=== PATIENT | female | born 1980 | race Caucasian/White ===

== ENCOUNTER 2020-05-13 14:07 | Outpatient (CLI) | payer OTHER, SELFPAY ==
--- NOTE | ~2020-05-13 | MR_ITS ---
EXAMINATION: MR wrist LT wo con DATE: 05/13/2020 14:59 INDICATION: Left wrist lifting injury one month prior with general sided left wrist pain with medial predominance. TECHNIQUE: Magnetic resonance imaging (MRI) of the left wrist was performed without intravenous contr ast. Sequences performed include axial PD-weighted FSE and PD-weighted FS FSE, coronal PD-weighted FS FSE and T1-weighted SE, and sagittal PD-weighted FS FSE and PD-weighted FSE. COMPARISON: None FINDINGS: Intrinsic ligaments: The scapholunate and lunotriquetral ligaments are normal. Triangular fibrocartilage complex (TFCC): High-grade partial tear at the ulnar side of the volar radioulnar ligament which most prominently thi ckened and with increased signal without discrete fluid signal intensity discontinuity. Less severe p artial tears of the dorsal radioulnar ligament and at the foveal attachment of the triangular fibroca rtilage complex. The central fibrocartilaginous disc, the radial and foveal attachments as well as th e ulnar triquetral ligament appear to remain grossly intact. The ulnar collateral ligament, meniscal homologue and extensor carpi ulnaris tendon subsheath are normal. Extensor wrist: Extensor tendons of the wrist are normal. No tenosynovitis. Flexor wrist: The flexor tendons of the wrist are normal. No abnormality in the carpal tunnel with normal median n erve. Guyon's canal: Guyon's canal including the ulnar nerve and artery are normal. Bones/other: Normal marrow signal. No fracture, erosions, avascular necrosis or abnormal marrow replacing process. Joint spaces are normal with no focal cartilage defects appreciated. IMPRESSION: 1. Partial tear of the triangular fibrocartilage complex crowding higher grade partial tear of the vo lar radioulnar ligament and low-grade partial tears of the dorsal radioulnar ligament and foveal hien chment. Reviewed, dictated and finalized at location A. NT RECRUITER IMPRESSION: 1. Partial tear of the triangular fibrocartilage complex crowding higher grade partial tear of the volar radioulnar ligament and low-grade partial tears of th e dorsal radioulnar ligament and foveal attachment.
== END 2020-05-13 14:08 | disposition home or self-care (01) ==
LOC: ANHIMG 14:16
PROVIDERS: PCP Internal Medicine
DX: S69.92XA Unspecified injury of left wrist, hand and finger(s), initial encounter (principal); S63.592A Other specified sprain of left wrist, initial encounter
CPT/HCPCS: 73221

== ENCOUNTER 2020-07-22 09:43 | Outpatient (CLI) | payer OTHER, SELFPAY ==
--- NOTE | ~2020-07-22 | US_ITS ---
EXAMINATION: US pelvic complete w TV DATE: 07/22/2020 10:17 INDICATION: Left adnexal fullness Comparison:No prior studies for comparison. TECHNIQUE: Multiple transabdominal and endovaginal sonographic images of the pelvis performed. FINDINGS: The uterus measures 7.9 x 5.3 x 4.9 cm. The endometrial complex measures 4 mm. The right ovary measures 2.4 x 1.6 x 1.7 cm and the left ovary measures 1.9 x 1.5 x 0.7 cm. There ar e small follicles in each ovary. Normal doppler signal in both ovaries. There are mildly dilated left adnexal veins with increased vascularity. There is no free fluid in the pelvis. There are no abnormal masses seen on either side. IMPRESSION: 1. Mildly dilated left adnexal veins with increased vascularity, nonspecific but can be associated wi th pelvic congestion syndrome. Reviewed, dictated and finalized at location A. IMPRESSION: 1. Mildly dilated left adnexal veins with increased vascularity, nonspecific bu t can be associated with pelvic congestion syndrome.
== END 2020-07-22 09:44 | disposition home or self-care (01) ==
LOC: ANHIMG 09:49
PROVIDERS: PCP Internal Medicine; Visit Provider Obstetrics & Gynecology
DX: N94.9 Unspecified condition associated with female genital organs and menstrual cycle (principal)
CPT/HCPCS: 76830; 76856

== ENCOUNTER 2022-02-17 08:46 | Outpatient (CLI) | payer OTHER, SELFPAY ==
[2022-02-17 18:53] LABS: Basophils Percent Auto 0.4 % (0.2-1.2); Eosinophils Absolute Auto 0.1 K/mm3 (0-0.3); Eosinophils Percent Auto 0.9 % (0-4.4); Hematocrit 35.7 % (37.0-47.0); Hemoglobin 11.2 g/dL (12.0-15.0); Immature Granulocyte Absolute 0.03 K/mm3 (0.00-0.031); Immature Granulocyte Percent A 0.6 % (0-0.5); Lymphocytes Absolute Auto 1.41 K/mm3 (0.9-3.2); Lymphocytes Percent Auto 26.5 % (18.3-44.2); Mean Corpuscular HGB Conc 31.4 g/dl (32-36); Mean Corpuscular Hemoglobin 27.9 pg (26-34); Mean Platelet Volume 9.7 fl (7.4-10.4); Monocytes Absolute Auto 0.4 K/mm3 (0.1-0.6); Monocytes Percent Auto 7.5 % (2.6-8.5); Neutrophils Absolute Auto 3.4 K/mm3 (1.3-6.7); Neutrophils Percent Auto 64.1 % (45.5-73.1); Platelet Count Result 246 k/mm3 (150-375); Red Blood Count 4.01 M/mm3 (4.2-5.4); Red Cell Distribution Width 13.7 % (11.5-14.5); White Blood Count 5.3 K/mm3 (4.5-10.0)
[2022-02-17 19:04] LABS: Alanine Aminotransferase 24 U/L (6-35); Alkaline Phosphatase 57 U/L (38-126); Anion Gap 7 mmol/L (8-16); Aspartate Amino Transferase 45 U/L (14-36); Bilirubin,Total 0.3 mg/dL (0.2-1.3); Blood Urea Nitrogen 14 mg/dL (7-17); Calcium 8.5 mg/dL (8.4-10.2); Carbon Dioxide 25 mmol/L (22-30); Chloride 106 mmol/L (98-107); Cholesterol 156 mg/dL (0-200); Estimated Glomerular Filt Rate > 60; Glucose 88 mg/dL (65-110); HDL Direct 62 mg/dL; Potassium 4.3 mmol/L (3.4-5.0); Sodium 138 mmol/L (137-145); Triglycerides 35 mg/dL (<150)
[2022-02-17 19:15] LABS: LDL Cholesterol Direct 69 mg/dL
[2022-02-17 20:02] LABS: Vitamin D 25 Hydroxy 31.1 ng/mL
[2022-02-20 15:53] LABS: Testosterone Free 1.5 pg/mL (0.1-6.4); Testosterone Total 34 ng/dL (2-45)
[2022-02-22 18:11] LABS: FSH 3.7 mIU/mL (***)
[2022-02-25 14:52] LABS: Estrogen 858.2 pg/mL
== END 2022-02-17 08:47 | disposition home or self-care (01) ==
PROVIDERS: PCP Nurse Practitioner; Visit Provider Obstetrics & Gynecology
DX: Z13.220 Encounter for screening for lipoid disorders (principal); Z13.228 Encounter for screening for other metabolic disorders; R53.83 Other fatigue; R68.82 Decreased libido
CPT/HCPCS: 36415; 80053; 80061; 82306; 82672; 83001; 84402; 84403; 85025

== ENCOUNTER 2022-11-18 09:51 | Outpatient (CLI) | payer OTHER, SELFPAY ==
--- NOTE | ~2022-11-18 | MM_ITS ---
EXAMINATION: MM screening sai BI w ruthy HISTORY: Screening TECHNIQUE: Craniocaudal and mediolateral oblique 3-D tomosynthesis images were obtained and synthetic 2-D images were generated. CAD analysis was submitted and interpreted. COMPARISON: No prior mammogram is available for comparison at this institution. BREAST PARENCHYMAL COMPOSITION: Breast composed of scattered areas of fibroglandular density FINDINGS: There are bilateral breast asymmetries in the periareolar location of the right breast, upp er outer quadrant of the left breast posteriorly and lower central left breast anteriorly. There are no suspicious calcifications or architectural distortion. IMPRESSION: 1. Bilateral breast asymmetries. 2. Additional mammographic views and possible breast ultrasound are recommended. BI-RADS Category 0: Incomplete: Needs additional imaging evaluation. Reviewed, dictated and finalized at location A. IMPRESSION: 1. Bilateral breast asymmetries. 2. Additional mammographic views and possible breast ultrasound are recommended . BI-RADS Category 0: Incomplete: Needs additional imaging evaluation.
== END 2022-11-18 09:52 | disposition home or self-care (01) ==
LOC: ANHIMG 09:54
PROVIDERS: PCP Nurse Practitioner; Visit Provider Obstetrics & Gynecology
DX: Z12.31 Encounter for screening mammogram for malignant neoplasm of breast (principal); R92.8 Other abnormal and inconclusive findings on diagnostic imaging of breast
CPT/HCPCS: 77063; 77067

== ENCOUNTER 2022-12-16 12:40 | Outpatient (CLI) | payer OTHER, SELFPAY ==
--- NOTE | ~2022-12-16 | MMUS_ITS ---
EXAMINATION: MM diagnostic sai BI w ruthy, US breast BI complete HISTORY: Bilateral mammographic asymmetries reported on 11/18/2022 screening mammogram TECHNIQUE: Additional 3-D tomosynthesis images of both breasts were performed and synthetic 2-D image s were generated. CAD analysis was submitted and interpreted. High resolution complete bilateral j[address] ultrasound examination clinical 4 quadrants and subareolar areas was performed. COMPARISON: 11/18/2022 bilateral screening mammogram BREAST PARENCHYMAL COMPOSITION: There are scattered areas of fibroglandular density. FINDINGS: MAMMOGRAPHIC FINDINGS: Circumscribed benign-appearing probable lymph node is identified in the mid to upper outer right j[address] and posterior upper outer left breast. There is fibroglandular asymmetry. Otherwise no suspicious mass, architectural distortion, malignant calcification, skin thickening or r etraction of either breast is detected. ULTRASOUND: Benign-appearing approximately 9 x 2.7 x 7 mm lymph node is confirmed in the right breast at 10:00 7 cm from the nipple. Benign-appearing approximately 6 x 3 x 6.4 mm lymph node is confirmed in the left breast at 1:00 6 cm from the nipple. No suspicious mass or shadowing of either breast is detected. IMPRESSION: 1. Benign findings; no mammographic evidence of malignancy 2. Routine annual mammographic screening is recommended BI-RADS Category 2: Benign finding(s). Reviewed, dictated and finalized at location A. IMPRESSION: 1. Benign findings; no mammographic evidence of malignancy 2. Routine annual mammographic screening is recommended BI-RADS Category 2: Benign finding(s).
== END 2022-12-16 12:41 | disposition home or self-care (01) ==
LOC: ANHIMG 12:42
PROVIDERS: PCP Internal Medicine; Visit Provider Obstetrics & Gynecology
DX: R92.8 Other abnormal and inconclusive findings on diagnostic imaging of breast (principal)
CPT/HCPCS: 76641; 77062; 77066; G0279

== ENCOUNTER 2023-03-25 07:42 | Outpatient (CLI) | payer OTHER, SELFPAY ==
[2023-03-25 19:46] LABS: Basophils Percent Auto 0.7 % (0.2-1.2); Eosinophils Absolute Auto 0.1 K/mm3 (0-0.3); Eosinophils Percent Auto 1.1 % (0-4.4); Hematocrit 40.6 % (37.0-47.0); Hemoglobin 12.6 g/dL (12.0-15.0); Immature Granulocyte Absolute 0.01 K/mm3 (0.00-0.031); Immature Granulocyte Percent A 0.2 % (0-0.5); Lymphocytes Absolute Auto 1.54 K/mm3 (0.9-3.2); Lymphocytes Percent Auto 33.6 % (18.3-44.2); Mean Corpuscular Hemoglobin 26.3 pg (26-34); Mean Corpuscular Volume 84.8 fl (80-100); Mean Platelet Volume 10.8 fl (7.4-10.4); Monocytes Absolute Auto 0.4 K/mm3 (0.1-0.6); Monocytes Percent Auto 9.4 % (2.6-8.5); Neutrophils Absolute Auto 2.5 K/mm3 (1.3-6.7); Platelet Count Result 215 k/mm3 (150-375); Red Blood Count 4.79 M/mm3 (4.2-5.4); Red Cell Distribution Width 14.3 % (11.5-14.5); White Blood Count 4.6 K/mm3 (4.5-10.0)
[2023-03-25 20:04] LABS: Iron 42 ug/dL (37-170); Percent Iron Saturation 10 % (20-50); Vitamin D 25 Hydroxy 36.2 ng/mL
[2023-03-25 20:11] LABS: LDL Cholesterol Direct 83 mg/dL
[2023-03-25 20:16] LABS: Alanine Aminotransferase 16 U/L (6-35); Albumin Level 4.1 g/dL (3.5-5.1); Alkaline Phosphatase 64 U/L (38-126); Anion Gap 8 mmol/L (8-16); Aspartate Amino Transferase 44 U/L (14-36); Bilirubin,Total 0.3 mg/dL (0.2-1.3); Blood Urea Nitrogen 15 mg/dL (7-17); Calcium 8.9 mg/dL (8.4-10.2); Carbon Dioxide 23 mmol/L (22-30); Chloride 105 mmol/L (98-107); Cholesterol 190 mg/dL (0-200); Estimated Glomerular Filt Rate > 60; Glucose 94 mg/dL (65-110); HDL Direct 79 mg/dL; Potassium 4.1 mmol/L (3.4-5.0); Sodium 136 mmol/L (137-145); Triglycerides 60 mg/dL (<150)
[2023-03-25 21:05] LABS: Folic Acid 12.9 ng/mL (2.76->20)
== END 2023-03-25 07:43 | disposition home or self-care (01) ==
LOC: ANHBWCLAB 07:43
PROVIDERS: PCP Internal Medicine; Visit Provider Clinical Nurse Specialist
DX: D64.9 Anemia, unspecified (principal); E55.9 Vitamin D deficiency, unspecified; R00.2 Palpitations; Z13.220 Encounter for screening for lipoid disorders; Z13.228 Encounter for screening for other metabolic disorders
CPT/HCPCS: 36415; 80053; 80061; 82306; 82607; 82728; 82746; 83540; 83550; 84443; 85025

== ENCOUNTER 2023-06-30 10:35 | Outpatient (CLI) | payer OTHER, SELFPAY ==
--- NOTE | ~2023-06-30 | XR_ITS ---
EXAM: XR lumbar spine 2-3V DATE: 06/30/2023 10:46 HISTORY: lbp no injury right side si joint pain . COMPARISON: None available. FINDINGS: 5 nonrib-bearing lumbar-type vertebral bodies. Pedicles intact. Normal vertebral body alig nment. Vertebral body heights preserved. Mild disc space narrowing and marginal osteophytosis at L2-3 through L4-5. Mild multilevel lumbar facet sclerosis. No fracture or dislocation. IMPRESSION: Mild multilevel degenerative disc disease and facet arthropathy. Reviewed, dictated and finalized at location K.
--- NOTE | ~2023-06-30 | XR_ITS ---
EXAMINATION: XR sacroiliac joints min 3V DATE: 06/30/2023 10:54 INDICATION: Low back pain. Pain of right sacroiliac joint. TECHNIQUE: 3 views of the sacroiliac joints were obtained. COMPARISON: None. FINDINGS: Bone alignment is normal. No fracture. There is mild osteoarthritis of the sacroiliac joint s. IMPRESSION: 1. Mild osteoarthritis of the sacrococcygeal joints. No evidence of inflammatory arthropathy. Reviewed, dictated and finalized at location A. IMPRESSION: 1. Mild osteoarthritis of the sacrococcygeal joints. No evidence of inflammator y arthropathy.
== END 2023-06-30 10:36 ==
PROVIDERS: PCP Internal Medicine; Visit Provider Clinical Nurse Specialist
DX: M53.3 Sacrococcygeal disorders, not elsewhere classified (principal); M51.36 Other intervertebral disc degeneration, lumbar region; M47.816 Spondylosis without myelopathy or radiculopathy, lumbar region
CPT/HCPCS: 72100; 72202

== ENCOUNTER 2023-08-17 09:15 | Outpatient (RCR) | payer OTHER, SELFPAY ==
--- NOTE | 2023-07-30 11:03 | OPREHPOC ---
Outpatient Therapy Plan of Care This is a Multidisciplinary Plan of Care that may contain components documented by all disciplines (PT, OT, and ST.) PT Problem 1 PT Problem #1 Knowledge Deficit PT Goal 1 Goal *indep with HEP Target Visit 8 PT Problem 2 PT Problem #2 Pain PT Goal 1 Goal 1* pt report pain rating of 3/10 at worst 2* no radicular pain into R thigh 3* self assessment Oswestry rating of 6% limitation Target Visit 8 PT Problem 3 PT Problem #3 Impaired Flexibility PT Goal 1 Goal improve flexibility of hips, to improve R/L balance and pelvic positioning: hamstring length with supine SLR 1* R 75' 2* L 75' 3* prone knee flexion L without pain increase Target Visit 8 PT Problem 4 PT Problem #4 Impaired Strength PT Goal 1 Goal increase trunk strength, to improve stability of pelvic-sacral area: 1* pt perform 20 reps of strengthening exercises 2* maintain good position with exercises Target Visit 8
--- NOTE | 2023-07-30 11:03 | PTOPEVAL1 ---
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, careful and have help lifting heavier pts; Reported Pain Level Pain Score Self Report Additional Pain Score Comments pain range in the past week 0-5/10; no longer have pain in low back, but now in front of R hip and lateral hip; radicular to proximal, anterior knee; charley horse in front of hip--push down hard there and it helps; once hip is flared up--hurts rest of day; increase pain: sitting at work computer, varies within 1 hour; standing about 1 hour; decrease pain: straighten R hip, massage therapist sleeping is OK; have not used heat/ice lately; use biofreeze and pain lidocaine patches in the past is not taking any meds for pain; Assessment PT Clinical Summary Pippa has the diagnosis of chronic back pain and sacral- coccyx pain. She reports onset of pain after childbirth and recent flare up after doing more activity at the fitness center. Self assessment Oswestry rating of 10% limitation in activity. Most pain increase with sitting or standing over 1 hour. She has not had PT for her pain in the past, but has been to chiropractor and massage therapist. 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 With the evaluation: she has good strength of LEs decreased flexibility of R and L hamstrings; pain is increased with standing trunk extension, supine R hip flexion and L h
--- NOTE | 2023-09-09 10:47 | PTOPDC ---
Assessment and note entered by Lucía Casper, PT Discharge Report Assessment Status Discharge - Pt Not Present Diagnosis back pain, sacral- coccygeal pain Onset June 2023 Subjective Information pt was not seen this date Assessment PT Clinical Summary Pippa has received 4 PT sessions, from July 29 to August 16. She then stopped attending. Discharge PT services. The goals were not addressed. Plan of Care PT Services Indicated No
== END 2023-09-09 11:31 | disposition home or self-care (01) ==
LOC: ANHPT 09:15
PROVIDERS: PCP Internal Medicine; Visit Provider Clinical Nurse Specialist
DX: M53.3 Sacrococcygeal disorders, not elsewhere classified (principal); M54.50 Low back pain, unspecified
CPT/HCPCS: 97110; 97112; 97140; 97161; 97530

== ENCOUNTER 2024-01-13 09:31 | Outpatient (CLI) | payer OTHER, SELFPAY ==
--- NOTE | ~2024-01-13 | MM_ITS ---
EXAMINATION: MM screening sai BI w ruthy HISTORY: Screening TECHNIQUE: Craniocaudal and mediolateral oblique 3-D tomosynthesis images were obtained and synthetic 2-D images were generated. CAD analysis was submitted and interpreted. COMPARISON: Comparison to multiple prior studies sequentially, with oldest reviewed study dated 11/18. BREAST PARENCHYMAL COMPOSITION: Not dense: There are scattered areas of fibroglandular density. FINDINGS: There is a developing poorly circumscribed mass in the upper outer quadrant of the right br east, middle third which is obscured by overlying fibroglandular content. The left breast is stable w ithout evidence for malignancy. IMPRESSION: 1. Developing obscured right breast mass in the upper outer quadrant, middle third. 2. Additional mammographic views and possible breast ultrasound are recommended. BI-RADS Category 0: Incomplete: Needs additional imaging evaluation. Reviewed, dictated and finalized at location B. IMPRESSION: 1. Developing obscured right breast mass in the upper outer quadrant, middle th ird. 2. Additional mammographic views and possible breast ultrasound are recommended . BI-RADS Category 0: Incomplete: Needs additional imaging evaluation.
== END 2024-01-13 09:32 | disposition home or self-care (01) ==
LOC: ANHIMG 09:34
PROVIDERS: PCP Internal Medicine; Visit Provider Obstetrics & Gynecology
DX: Z12.31 Encounter for screening mammogram for malignant neoplasm of breast (principal); R92.8 Other abnormal and inconclusive findings on diagnostic imaging of breast
CPT/HCPCS: 77063; 77067

== ENCOUNTER 2024-01-28 12:50 | Outpatient (CLI) | payer OTHER, SELFPAY ==
--- NOTE | ~2024-01-28 | MMUS_ITS ---
EXAMINATION: MM diagnostic sai RT w ruthy, US breast RT limited HISTORY: Follow-up right breast asymmetry TECHNIQUE: Additional 3-D tomosynthesis images of the right breast were performed and synthetic 2-D i mages were generated. CAD analysis was submitted and interpreted. High resolution Limited right breas t ultrasound was performed. COMPARISON: Comparison to multiple prior studies sequentially, with oldest reviewed study dated 11/18. BREAST PARENCHYMAL COMPOSITION: Not dense: There are scattered areas of fibroglandular density. FINDINGS: MAMMOGRAPHIC FINDINGS: The focal asymmetry laterally in the right breast compresses with spot views, consistent with superim posed fibroglandular content. There is an intramammary lymph node in the upper outer quadrant of the right breast. ULTRASOUND: Limited right breast ultrasound: At 10:00, 7 cm from the nipple there is a normal intramammary lymph node measuring 9 mm. This corresponds to the mammographic finding. IMPRESSION: 1. No evidence for malignancy in the right breast. Benign finding. 2. Routine yearly screening mammogram and regular clinical breast examination are recommended. BI-RADS Category 2: Benign finding(s). Reviewed, dictated and finalized at location B. IMPRESSION: 1. No evidence for malignancy in the right breast. Benign finding. 2. Routine yearly screening mammogram and regular clinical breast examination a re recommended. BI-RADS Category 2: Benign finding(s).
== END 2024-01-28 12:51 | disposition home or self-care (01) ==
LOC: ANHIMG 12:51
PROVIDERS: PCP Internal Medicine; Visit Provider Obstetrics & Gynecology
DX: R92.8 Other abnormal and inconclusive findings on diagnostic imaging of breast (principal)
CPT/HCPCS: 76642; 77061; 77065; G0279

== ENCOUNTER 2024-11-23 07:55 | Outpatient (CLI) | payer BC, SELFPAY ==
--- OUTSIDE RECORDS SUMMARY | 2011-03-11 09:30 | XMS_ITS | Continuity of Care Document ---
Author Organization [facility] Address [address] [place] [address] Phone Care Team Providers Care Bathhouse Keeper Name Role Phone Unavailable Unavailable Unavailable Allergies, Adverse Reactions, Alerts Substance Reaction Status Criticality Sulfa (Sulfonamide Antibiotics) hives(severe) Active No Information Penicillins hives(moderate) Active No Informati on Medications Medication Instructions Dosage Effective Dates (start - stop) Status Comments 27 mg-0.8 mg Tab take 1 tablet by oral route every day - Active Mirena 20 mcg/24 hr Intrauterine Device - Active Advance Directives Directive Yes / No Effective Date File Name No Information Encounters Encounter Description Practice Location Reason(s) For Visit Diagnoses Date Provider Providers Copied on Encounter [facility], [address], [place], [place], [id number] , tel: [phone] [place] Dysfunction of eustachian tube 1 No Information [facility], [address], [place], [place], [id number] , tel: [phone] [place] Routine general medical examination at a health care facilityAllergic rhinitis due to other allergenPalpitati onsRoutine general medical examination at a health care facilityRoutine general medical examination at a health care facilityRoutine general medical examination at a health care facilityNevus, non-neoplasticRou amanda general medical examination at a health care facility 1 No Information Family History Family Member Type Diagnosis Age At Onset Paternal uncle Problem (finding) Mental illness Maternal grandfather Problem (finding) No Family history of No history of Stroke Paternal grandmother Problem (finding) Renal disease Paternal aunt Problem (finding) breast cancer Paternal grandmother Problem (finding) coronary arteri osclerosis Father Problem (finding) hypertension Paternal grandmother Problem (finding) hypertension Maternal grandfather Problem (finding) amyotrophic lat eral sclerosis Paternal grandmother Problem (finding) CABG Paternal grandfather Problem (finding) Diabetes mellit us Immunizations Vaccine Date Status Comments DTaP administered Source: New Imm unization Record hep B (adult) administered Source: New Im munization Record hep B (adult) administered Source: New Im munization Record hep B (adult) administered Source: New Im munization Record Payers Payer name Insurance type Covered constitution party ID Authorlucia ansari(s) ROSA MARIA IGNACIO [id number] Social History Type Description Quantity Date Captured Comments Alcohol Use Details Caffeine Use Details No Tobacco Use Status No Information Smoking Status No Information Sex Female Vital Signs Date / Time: Height Weight BMI Pulse Rate Blood Pressure Temperature Respiratory Rate Body Surface Area Head Circumference Head Circ. Percentile Wt./Miguel Angel. Percentile BMI percentile Pulse Ox Inhaled Ox 2:47 PM 68.00 in 169.00 lbs 25.6 9 kg/m eter (2) 74 /min 100/60 mm[Hg] 98.00 F 12 /min Chief Complaint And Reason For Visit No Information Reason For Referral Reason For Referral No Information History Of Present Illness Encounter Date Complaint History Of Prese nt Illness No Information Functional Status Date Functional Assessmen t No Information Instructions Date Instruction Additional Infor mation No Information Assessments Type Assessment Date No Information Patient Care Teams Name Effective Dates (start - stop) Status Members No Information
--- OUTSIDE RECORDS SUMMARY | 2024-11-23 08:13 | XMS_ITS | Clinical Summary ---
Author Organization [address] Address [address] [place] [address] Care Team Providers Care Spearer Name Role Phone Odell Ash DO Primary Care Provider [phone] Allergies Active Allergy Reactions Criticality Noted Date Comments Penicillins Hives Medium 05/29/2020 Sulfa (Sulfonamide Antibiotics) Hives Medium 05/07 Medications No known medications Active Problems Problem Noted Date Diagnosed Date Left wrist pain 05/29/2020 Injury of triangular fibrocartilage complex of l eft wrist 05/29/2020 Surgical History Surgery Date Site/Laterality Comments WISDOM TOOTH EXTRACTION Medical History Medical History Date Comments No pertinent family history Family History Medical History Relation Name Comments Diabetes Father Hyperlipidemia Father Hypertension Father No Known Problems Mother Relation Name Status Comments Father Alive Mother Alive Social History Tobacco Use Types Packs/Day Years Used Date Smoking Tobacco: Never Personal Safety Answer Date Recorded Getting School Help Needed Not on file 06/05 Comments Unknown Sex and Gender Information Value Date Recorded Sex Assigned at Not on file Legal Sex Female 10:32 AM [employer]ASS [employer] Gender Identity Not on file Sexual Orientation Not on file Obstetrics History Last Filed Vital Signs Vital Sign Reading Time Taken Comments Blood Pressure - - Pulse - - Temperature 36.5 C (97.7 F) 07/08/2020 1:24 PM CDT Respiratory Rate - - Oxygen Saturation - - Inhaled Oxygen Concentration - - Weight 71.7 kg (158 lb) 07/08/2020 1:24 PM CDT Height 172.7 cm (5' 8) 07/08/2020 1:24 PM CDT Body Mass Index 24.02 07/08/2020 1:24 PM CDT Plan of Treatment Not on file Insurance [employer] Care Teams Spearer Relationship Specialty Start Date End Date Odell Ash DO PCP - General Internal Medicine 05/29/20
--- OUTSIDE RECORDS SUMMARY | 2024-11-23 08:13 | XMS_ITS | Clinical Summary ---
Author Organization [facility] Address [address] [place] [address] Care Team Providers Care Luggage Liner Name Role Phone Adalberto Lisa MD Primary Care Provider Unavailabl e Source Comments [facility],non-owned Affiliates and Associated Physician Practices is amultiple site organization consisting of ambulatory clinics and hospital sitesin [place], [place], [place] and [place]. This disclosure is being madepursuant to the Care Everywhere program and may not contain all information available regarding this patient. Last updated 17.[facility] Allergies Active Allergy Reactions Criticality Noted Date Comments Amoxicillin Urticaria 08/16/2010 Penicillins Urticaria Medium 05/08/2010 Sulfa Drugs Urticaria Medium 05/08/2010 Medications * Be aware that medications may not be up to date on this document. Alwaysverify current medications with the patient. Vit-Fe Fumarate-FA ( VITAMIN) 28-0.8 MG tablet Take 1 Tab by mouth daily. Active ranitidine (ZANTAC) 75 MG tablet Take 75 mg by mouth 2 times daily. Active ferrous sulfate 325 (65 FE) MG tablet Take 325 mg by mouth daily. Active ibuprofen (MOTRIN) 600 MG tablet Take 1 Tab by mouth every 6 hours as needed for Pain. 60 Tab 2 08/18/2010 Active docusate sodium (COLACE) 100 MG capsule Take 1 Cap by mouth nightly as needed for Constipation . 30 Cap 3 08/18/2010 Active Active Problems Problem Noted Date Diagnosed Date Supervision of normal 08/16/2010 Overview (08/16/2010): SANTY/Daniel L=10wk O+/I/-/-, NR 1hr GCT 149 3hr GTT 75/174/134/142 GBS neg Immunizations Immunization Administration Dates Next Due TDAP (7yrs+) 08/17/2010 Family History Medical History Relation Name Comments Hypertension Father Stroke Maternal Grandfather Cancer Paternal Aunt breast ca Hypertension Paternal Aunt Hypertension Paternal Grandfather Hypertension Paternal Grandmother Hypertension Paternal Uncle Arthritis - Rheumatoid Sister Relation Name Status Comments Father Maternal Grandfather Paternal Aunt Paternal Grandfather Paternal Grandmother Paternal Uncle Sister Social History Tobacco Use Types Packs/Day Years Used Date Smoking Tobacco: Never Smokeless Tobacco: Never Alcohol Use Standard Drinks/Week Comments No 0 (1 standard drink = 0.6 oz pur e alcohol) Comments Unknown Sex and Gender Information Value Date Recorded Sex Assigned at Not on file Legal Sex Female 5:07 AM [employer] Gender Identity Not on file Sexual Orientation Not on file Last Filed Vital Signs Vital Sign Reading Time Taken Comments Blood Pressure 120/80 10/28/2012 2:08 PM CDT Pulse 61 08/18/2010 7:40 AM CDT Temperature 36.4 C (97.5 F) 08/18/2010 7:40 AM CDT Respiratory Rate 17 08/18/2010 7:40 AM CDT Oxygen Saturation 97% 08/16/2010 10:28 AM CDT Inhaled Oxygen Concentration - - Weight 69.4 kg (153 lb) 10/28/2012 2:08 PM CDT Height 172.7 cm (5' 8) 10/28/2012 2:08 PM CDT Body Mass Index 23.26 10/28/2012 2:08 PM CDT Plan of Treatment Health Maintenance Due Date Last Done Comments LIPID TESTING 1982 MAMMOGRAM 1982 HEPATITIS C SCREENING 10/05/2000 HEPATITIS B VACCINE (1 of 3 - 19+ 3-dose series) 2001 HPV VACCINE (1 - 3-dose SCDM series) 2009 DTAP/TDAP/TD VACCINES (2 - T d or Tdap) 08/17/2020 08/17/2010 COVID-19 VACCINE (1 - 2023-2 5 season) 2023 DEPRESSION SCREENING 04/05/2024 INFLUENZA VACCINE (#1) 2024 03/11/2010 ZOSTER VACCINE (1 of 2) 2032 HIV SCREENING Completed 01/28/2010 HIB VACCINE Aged Out No longer eligi ble based on patient's age to complete this topic MENINGOCOCCAL (Group B) VACC INE SHARED DECISION-MAKING Aged Out No longer eligibl e based on patient's age to complete this topic MENINGOCOCCAL GROUPS A/C/Y/W VACCINE Aged Out No longer eligible b ased on patient's age to complete this topic PNEUMOCOCCAL VACCINE Aged Out No long er eligible based on patient's age to complete this topic Procedures Procedure Name Priority Date/Time Associated Diagnosis Comments HIV-1 HIV-2 ANTIBODIES W RFLX REFLEXED Routine 01/28/2010 4:04 PM CDT from Last 3 Months or Most Recently Relevant to Health Maintenance Results * HIV-1 HIV-2 ANTIBODIES W RFLX REFLEXED (01/28/2010 4:04 PM CDT) HIV 1/2 EIA Antibody NON-REACTI VE NON-REACT [facility] ([facility]) Comment: A Nonreactive HIV-1/2 antibody result does not exclude HIV infection since the time frame for seroconversion is variable. If acute HIV infection is suspected, antibody retesting and nucleic acid amplification (HIV DNA/RNA) testing is recommended. REPORT COMMENT: PREFERRED LAB:->[facility]; PREFERRED LAB:->[facility]; PREFERRED LAB: Test Performed at: [facility] [id number] [place] [id number] ARELI LEDBETTER DO,MPH 01/28/2010 4:04 PM CDT 01/28/2010 4:09 PM CDT us Jessica Sanchez MD LAB - CHEMISTRY ORDERABLES Final Result [facility] ([facility]) [id number] from Last 3 Months or Most Recently Relevant to Health Maintenance Advance Directives * Full Code (Latest Code Status on File) Date Activated Date Inactivated Comments 08/17/2010 12:55 AM 08/19/2010 4:33 AM Care Teams Luggage Liner Relationship Specialty Start Date End Date Adalberto Lisa MD PCP - General 04/06/19
[2024-11-23 18:35] LABS: Hematocrit 41.5 % (37.0-47.0); Hemoglobin 13.0 g/dL (12.0-15.0); Immature Granulocyte Percent A 0.2 % (0-0.5); Lymphocytes Absolute Auto 1.37 K/mm3 (0.9-3.2); Mean Corpuscular HGB Conc 31.3 g/dl (32-36); Mean Corpuscular Hemoglobin 28.3 pg (26-34); Mean Corpuscular Volume 90.2 fl (80-100); Nucleated Red Blood Cells Absolute Auto 0.000 K/mm3 (0.0-0.012); Nucleated Red Blood Cells Perc 0.0 % (0.0-0.2); Platelet Count Result 189 k/mm3 (150-375); Red Blood Count 4.60 M/mm3 (4.2-5.4); White Blood Count 4.3 K/mm3 (4.5-10.0)
[2024-11-23 19:39] LABS: Alanine Aminotransferase 24 U/L (6-35); Albumin Level 4.3 g/dL (3.5-5.1); Alkaline Phosphatase 68 U/L (38-126); Anion Gap 7 mmol/L (4-12); Aspartate Amino Transferase 51 U/L (14-36); Bilirubin,Total 0.5 mg/dL (0.2-1.3); Blood Urea Nitrogen 18 mg/dL (7-17); Calcium 9.2 mg/dL (8.4-10.2); Carbon Dioxide 26 mmol/L (22-30); Chloride 103 mmol/L (98-107); Cholesterol 200 mg/dL (0-200); Estimated Glomerular Filt Rate > 60; Glucose 86 mg/dL (65-110); HDL Direct 71 mg/dL; Potassium 4.0 mmol/L (3.4-5.0); Sodium 136 mmol/L (137-145); Total Protein 7.4 g/dL (6.3-8.2); Triglycerides 89 mg/dL (<150)
[2024-11-23 19:47] LABS: Iron 99 ug/dL (37-170)
[2024-11-23 19:58] LABS: Percent Iron Saturation 26 % (20-50)
[2024-11-23 20:04] LABS: Free T4 Free Thyroxine 0.99 ng/dL (0.78-2.19)
[2024-11-23 20:14] LABS: Thyroid Stimulating Hormone 2.120 uIU/mL (0.465-4.680)
[2024-11-23 20:28] LABS: Ferritin 23.90 ng/mL (6.24-137)
[2024-11-23 20:32] LABS: Vitamin B12 657.0 pg/mL (239-931)
[2024-11-25 07:08] LABS: Triiodothyronine (T3), Free 3.1 pg/mL (2.0-4.4)
[2024-11-25 09:08] LABS: FSH 17.4 mIU/mL (.); LH 25.0 mIU/mL (.)
== END 2024-11-23 07:56 | disposition home or self-care (01) ==
LOC: ANHBWCLAB 07:56
PROVIDERS: Clinical Nurse Specialist; PCP Internal Medicine; Visit Provider Obstetrics & Gynecology
DX: Z13.220 Encounter for screening for lipoid disorders (principal); Z13.228 Encounter for screening for other metabolic disorders; R74.8 Abnormal levels of other serum enzymes; R00.2 Palpitations; E55.9 Vitamin D deficiency, unspecified; D50.9 Iron deficiency anemia, unspecified; D64.9 Anemia, unspecified; N92.6 Irregular menstruation, unspecified
CPT/HCPCS: 36415; 80053; 80061; 82607; 82728; 83001; 83002; 83525; 83540; 83550; 84144; 84439; 84443; 84481; 85025

== ENCOUNTER 2025-02-22 09:26 | Outpatient (CLI) | payer BC, SELFPAY ==
[2025-02-22 10:12] LABS: Alanine Aminotransferase 16 U/L (6-35); Albumin Level 4.3 g/dL (3.5-5.1); Alkaline Phosphatase 63 U/L (38-126); Anion Gap 7 mmol/L (4-12); Aspartate Amino Transferase 20 U/L (14-36); Bilirubin,Total 0.2 mg/dL (0.2-1.3); Blood Urea Nitrogen 18 mg/dL (7-17); Calcium 9.0 mg/dL (8.4-10.2); Carbon Dioxide 23 mmol/L (22-30); Chloride 103 mmol/L (98-107); Estimated Glomerular Filt Rate > 60; Glucose 97 mg/dL (65-110); Potassium 4.0 mmol/L (3.4-5.0); Sodium 133 mmol/L (137-145); Total Protein 7.4 g/dL (6.3-8.2)
[2025-02-23 07:09] LABS: FSH 9.1 mIU/mL (.); LH 8.4 mIU/mL (.)
[2025-02-24 21:07] LABS: Free Testosterone (Direct) 0.5 pg/mL (0.0-4.2)
[2025-02-28 07:08] LABS: Estradiol, Sensitive 142.0 pg/mL (.)
== END 2025-02-22 09:27 | disposition home or self-care (01) ==
LOC: ANHLAB 09:28
PROVIDERS: PCP Internal Medicine; Referring Provider Clinical Nurse Specialist; Visit Provider Obstetrics & Gynecology
DX: R92.8 Other abnormal and inconclusive findings on diagnostic imaging of breast (principal); R74.01 Elevation of levels of liver transaminase levels
CPT/HCPCS: 36415; 80053; 82670; 83001; 83002; 84402